=== PATIENT | female | born 1950 | race Caucasian/White ===

== ENCOUNTER 2020-05-18 12:01 | Emergency (ER) | payer MEDICARE ==
[~2020-05-18] VITALS: Ht 162.6 cm; Wt 59.1 kg
[2020-05-18 12:02] VITALS: TEMP 97.8
[2020-05-18] MEDS ORDERED: ZOLOFT 50MG50 MG PO (12:12)
[2020-05-18] MEDS ORDERED: ZANAFLEX2 MG PO (12:13)
[2020-05-18] MEDS ORDERED: ASPIRIN 81M81 MG/TA2 PO (12:13)
[2020-05-18] MEDS ORDERED: AMBIEN 10MG10 MG PO (12:14)
[2020-05-18] MEDS ORDERED: ULTRAM 50MG TAB50 MG PO (12:15)
[2020-05-18] MEDS ORDERED: ZYPREXA ZYDIS5 MG PO (12:15)
[2020-05-18] MEDS ORDERED: PLAVIX 75MG TAB75 MG PO (12:16)
[2020-05-18] MEDS ORDERED: SYNTHROID0.075 MG/T PO (12:16)
[2020-05-18] MEDS ORDERED: NORVASC2.5 MG PO (12:16)
[2020-05-18] MEDS ORDERED: LIPITOR 80MG80 MG PO (12:16)
[2020-05-18] MEDS ORDERED: ATIVAN 1MG T1 MG/TAB PO (12:17)
[2020-05-18] MEDS ORDERED: CYMBALTA 30MG30 MG PO (12:17)
[2020-05-18 12:38] LABS: BASO # 0.1 (0.0-0.2); BASO % 0.6 % (0.0-2.0); EOS # 0.4 (0.0-0.7); EOS % 2.9 % (0-4.0); GRAN # 8.7 (1.4-6.5); GRAN % 72.2 % (42.2-75.2); HEMATOCRIT 41.3 % (37.0-47.0); HEMOGLOBIN 13.8 g/dl (12.5-16.0); LYMPH # 2.3 (1.2-3.4); LYMPH % 18.8 % (20.0-51.0); MEAN CELL VOLUME 94 fl (80.0-100.0); MEAN CORPUSCULAR HEMOGLOBIN 32 pg (27.0-31.0); MEAN CORPUSCULAR HGB CONC 33 g/dl (33.0-37.0); MEAN PLATELET VOLUME 10.8 fl (7.4-10.4); MONO # 0.6 (0.1-0.6); MONO % 4.8 % (1.7-9.3); PLATELET COUNT 395 K/mm3 (130-400); RED BLOOD COUNT 4.38 M/mm3 (4.10-5.30); REDCELL DISTRIBUTION WIDTH-CV 12.7 % (11.5-14.5)
[2020-05-18 12:44] LABS: ALBUMIN 4.5 gm/dL (3.5-5.0); BILIRUBIN,TOTAL 1.4 mg/dL (0.0-1.0); CALCIUM 9.6 mg/dL (8.4-10.2); CREATININE, serum 1.05 (0.52-1.25); TOTAL PROTEIN 7.9 gm/dL (6.4-8.2)
[2020-05-18 13:50] LABS: COLLECTION METHOD CLEAN CATCH
[2020-05-18 13:57] LABS: MUCOUS Present /lpf; PH 6 (5-8); URINE APPEARANCE Hazy; URINE BACTERIA None Seen /hpf; URINE BILIRUBIN Negative (NEGATIVE); URINE BLOOD Negative (NEGATIVE); URINE COLOR Yellow; URINE GLUCOSE Negative (NEGATIVE); URINE KETONE Trace (NEGATIVE); URINE LEUKOCYTE ESTERASE Negative (NEGATIVE); URINE NITRATE Negative (NEGATIVE); URINE PROTEIN(semi-quant) Negative (NEGATIVE); URINE RBC 0-2 /hpf; URINE UROBILINOGEN Negative (NEGATIVE)
[2020-05-18 14:04] LABS: TRICYCLIC ANTIDEPRESS URINE NEGATIVE
[2020-05-18 16:16] VITALS: BP 145/73; PULSE 80
--- NOTE | 2020-05-18 16:32 | NUR ---
Stitcher Feeder received a consult for the patient for [facility]. The patient lives at home alone (with her dog) and her sister, Prabhakar lives a few mobile homes away. JONATHON met with the patient. She confirmed her sister does live a few mobile homes away from her. The patient has groceries delivered. The patient's PCP is Dr. Grant. JONATHON contacted [facility] with Dr. Grant's office. Jacqueline reports the patient recently has missed appointments. She states they have requested the patient visit the ED for a workup due to some confusion but the patient refused. The patient was released from [facility] on 04/19. She went there for SI. The patient is homebound due to anxiety and fear. The patient would like to return home with home health. JONATHON faxed referral to [facility]. They received the fax and will review it. JONATHON met with the patient's sister, Prabhakar to discuss the discharge plan. The plan is to return home with home health. Prabhakar will check on the patient once a day. Prabhakar discussed the patient possibly going to assisted living. JONATHON provided Medicare.gov's list of nursing facilities. She will contact them to get more information. JONATHON collaborated the above information with the patient's nurse.
[2020-05-19] MEDS ORDERED: SYNTHROID0.1 MG/TAB PO (00:02)
[2020-05-19] MEDS ORDERED: ZYPREXA 5MG5 MG PO (00:03)
[2020-05-19] MEDS ORDERED: COZAAR 25MG25 MG/TAB PO (00:05)
== END 2020-05-18 16:16 | disposition home or self-care (01) ==
LOC: COL.ER 12:01 → EDBD 12:02 → COL.ER 13:27
PROVIDERS: Family Medicine
DX: R41.0 Disorientation, unspecified (principal); R51.9 Headache, unspecified; I10 Essential (primary) hypertension; Z79.02 Long term (current) use of antithrombotics/antiplatelets; Z79.82 Long term (current) use of aspirin
CPT/HCPCS: J0780; J1100; J1200; J1885; J7120

== ENCOUNTER 2020-05-18 19:03 | Inpatient (IN) | payer MEDICARE, OTHER ==
[~2020-05-18] VITALS: Ht 162.6 cm; Wt 59.4 kg
[~2020-05-18 19:03] MED LIST: AMBIEN 10MG10 MG PO; ASPIRIN 81M81 MG/TA2 PO; ATIVAN 1MG T1 MG/TAB PO; CYMBALTA 30MG30 MG PO; LIPITOR 80MG80 MG PO; NORVASC2.5 MG PO; PLAVIX 75MG TAB75 MG PO; SYNTHROID0.075 MG/T PO; ULTRAM 50MG TAB50 MG PO; ZANAFLEX2 MG PO; ZOLOFT 50MG50 MG PO; ZYPREXA ZYDIS5 MG PO
[2020-05-18 22:49] LABS: ACETAMINOPHEN < 10 ug/mL (10-30); SALICYLATE < 1.0 mg/dL
[2020-05-19] MEDS ORDERED: SYNTHROID0.1 MG/TAB PO (00:02)
[2020-05-19] MEDS ORDERED: ZYPREXA 5MG5 MG PO (00:03)
[2020-05-19] MEDS ORDERED: COZAAR 25MG25 MG/TAB PO (00:05)
--- NOTE | 2020-05-19 00:23 | NUR ---
Pt arrived to unit from ED via wheelchair.
[2020-05-19 00:35] VITALS: BP 136/78; PULSE 90; TEMP 97.5
[2020-05-19 02:09] LABS: MAGNESIUM 2.3 mg/dL (1.6-2.3); PHOSPHOROUS 3.4 mg/dL (2.5-4.5)
[2020-05-19 02:10] LABS: ALCOHOL(ethanol),MEDICAL < 10 mg/dL
[2020-05-19 03:31] VITALS: BP 128/77; PULSE 94; TEMP 97.9
--- NOTE | 2020-05-19 05:20 | NUR ---
Assessment completed, meds given per SEP. pt is alert and oriented to person and place, confused about why she is here and has memory problems intermittently. steady gait, pt reporting headache in the left frontal area stating unable to rate pain on a scale of 1 to 10. fluids started at 125 mLs per hour, no other needs at this time.
[2020-05-19 06:36] LABS: BASO % 0.2 % (0.0-2.0); EOS % 0.1 % (0-4.0); GRAN # 12.3 (1.4-6.5); GRAN % 80.2 % (42.2-75.2); HEMOGLOBIN 12.2 g/dl (12.5-16.0); LYMPH # 2.5 (1.2-3.4); LYMPH % 16.4 % (20.0-51.0); MEAN CELL VOLUME 94 fl (80.0-100.0); MEAN CORPUSCULAR HEMOGLOBIN 32 pg (27.0-31.0); MEAN CORPUSCULAR HGB CONC 34 g/dl (33.0-37.0); MEAN PLATELET VOLUME 11.6 fl (7.4-10.4); MONO # 0.4 (0.1-0.6); MONO % 2.4 % (1.7-9.3); PLATELET COUNT 361 K/mm3 (130-400); RED BLOOD COUNT 3.81 M/mm3 (4.10-5.30)
[2020-05-19 06:42] LABS: HEMATOCRIT 35.7 % (37.0-47.0)
[2020-05-19 08:27] VITALS: BP 153/77; PULSE 83; TEMP 97.4
--- NOTE | 2020-05-19 09:30 | NUR ---
Patient is going down for Lumbar puncture at this time
[2020-05-19 10:43] LABS: GLUCOSE,CSF 93 mg/dL (40-70); TOTAL PROTEIN,CSF 56 mg/dL (15-45)
[2020-05-19 10:53] LABS: CSF APPEARANCE CLEAR; CSF COLOR PINK; CSF MONONUCLEAR 72 % (70-100); CSF POLYMORPHONUCLEAR 28 % (0-6); CSF RBC 864 /mm3 (0-0)
[2020-05-19 11:38] VITALS: BP 147/65; PULSE 99; TEMP 97.6
[2020-05-19 15:55] VITALS: BP 137/77; PULSE 101; TEMP 98
--- NOTE | 2020-05-19 16:29 | NUR ---
JONATHON met with the patient to discuss discharge plan. The patient lives alone in [place]. She states that her sister, Prabhakar (ph#[phone]) and mother, live a couple trailers from her. She reports independence with ADLs and has a rolaider in her shed. The patient's PCP is Dr. Kamilah Ramos and she receives her medications at [facility]. She reports no difficulties obtaining her meds. The patient states that she thinks she has a DPOA-HC and that it designates her sister, Prabhakar. She states that she does not want Prabhakar as her DPOA-HC and making her decisions and would like to name her other sister, Ania as her DPOA-HC. SW provided her with a DPOA-HC form. The patient designated her sister, Ania (ph#[phone]), and her brother, Soto (ph#[phone]), as the alternate. Ania lives in [place] and Soto lives in [place]. The patient presented to the emergency department twice yesterday for altered mental status. The patient was set up with [facility]. Oralia, at [facility], reports that the patient has Medicare [employer] and that they received auth from her insurance. They are able to accept the patient for services. Oralia was notified of the patient being admitted. SW to fax updates to [facility]. The patient states that she would like to return home, if she can. She states that if she would need more help, she would like to see if she can stay with her brother for awhile. She states that she plans on talking to Soto about this. JONATHON then contacted and updated Ania and Soto. Ania and Soto are both are both concerned about the patient's confusion. Soto states that he needs to think about and talk to his about her staying with them. Ania and Soto ask that the clinical team keep them updated. SW to continue to follow.
--- NOTE | 2020-05-19 17:36 | NUR ---
Patient has had complaints of a migraine in the left side of her head. Michelle PEREZ notified. Patient has been A&Ox4 for this nurse, but was reported from other nursing staff to be confused at times. Patient has called for assistance to the bathroom and is steady on feet. Nurse instructed patient to put a cool wash cloth over eyes to help with the migraine. Will check to see if this help with the migraine. IV CDI, fluids infusing. No further needs expressed from the patient. Call light within reach
[2020-05-19 20:00] VITALS: BP 128/59; PULSE 92; TEMP 98.6
--- NOTE | 2020-05-19 21:10 | NUR ---
pt resting in bed, alert and oriented to person and place. conversation is confused at times, assessment completed and medications given per MAR. heart sounds are regular and normal, breath sounds clear. pt denies shortness of breath and chest pain. reporting migraine headache in the left frontal lobe, denies pain anywhere else. 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 gait is steady but pt seems anxious when walking to the bathroom. no other needs at this time, will continue to monitor.
[2020-05-20] VITALS (9 sets, daily range): BP systolic 100–175; BP diastolic 49–87; PULSE 79–104; TEMP 97.6–98.7
--- NOTE | 2020-05-20 00:58 | NUR ---
Pt reporting migraine and requesting medication, states the medication helped earlier but she has been unable to sleep. gave tylenol and benadryl prn per orders. will continue to monitor.
[2020-05-20 01:55] LABS: COLLECTION METHOD CLEAN CATCH
[2020-05-20 02:00] LABS: PH 6 (5-8); SQUAMOUS EPITHELIAL 0-2 /hpf; URINE APPEARANCE Clear; URINE BACTERIA Rare /hpf; URINE BILIRUBIN Negative (NEGATIVE); URINE BLOOD Negative (NEGATIVE); URINE COLOR Straw; URINE GLUCOSE Negative (NEGATIVE); URINE KETONE Negative (NEGATIVE); URINE LEUKOCYTE ESTERASE Negative (NEGATIVE); URINE NITRATE Negative (NEGATIVE); URINE PROTEIN(semi-quant) Negative (NEGATIVE); URINE RBC 0-2 /hpf; URINE UROBILINOGEN Negative (NEGATIVE); URINE WBC None Seen /hpf
--- NOTE | 2020-05-20 05:31 | NUR ---
pt resting in bed most of the night, states that she didn't sleep at all. continues to be alert and oriented to person and place, confused conversation. pt is impulsive when getting up to go to the bathroom and forgetful at times. migraine continues in the left frontal lobe, no other needs at this time will continue to monitor.
[2020-05-20 06:28] LABS: MEAN CELL VOLUME 96 fl (80.0-100.0); MEAN CORPUSCULAR HEMOGLOBIN 32 pg (27.0-31.0); MEAN CORPUSCULAR HGB CONC 33 g/dl (33.0-37.0); MEAN PLATELET VOLUME 11.6 fl (7.4-10.4); PLATELET COUNT 350 K/mm3 (130-400); RED BLOOD COUNT 3.76 M/mm3 (4.10-5.30); REDCELL DISTRIBUTION WIDTH-CV 13.4 % (11.5-14.5)
[2020-05-20 06:36] LABS: HEMATOCRIT 36.2 % (37.0-47.0)
[2020-05-20 06:38] LABS: CALCIUM 8.7 mg/dL (8.4-10.2); CREATININE, serum 1.16 (0.52-1.25)
[2020-05-20 07:46] LABS: BAND 3 % (0-10); LYMPHOCYTE 39 % (20.0-51.0); NEUTROPHILS 54 % (42.0-75.2); PLATELET ESTIMATE NORMAL (NORMAL)
--- NOTE | 2020-05-20 10:43 | NUR ---
JONATHON attended clinical rounds. The patient may be able to d/c tomorrow. The patient informed the team that she still makes meals for herself, but has concerns doing so, due to her tremors and does not really enjoy cooking for herself. JONATHON followed up with the patient and discussed [facility] [employer] [facility]. The patient was interested in this. JONATHON contacted Terri at [employer]. Terri reports that the patient would need to come to her office to fill out some paperwork. JONATHON informed the patient of this and provided her with Terri's phone number and address. JONATHON reviewed the discharge plan with the patient. The patient would like to return home and is in agreement to have home health services though [facility]. JONATHON notified Oralia at [facility] of possible d/c tomorrow. JONATHON contacted and updated the patient's sister, Ania. JONATHON to continue to follow.
--- NOTE | 2020-05-20 11:34 | NUR ---
Patient alert and oriented, denies any pain. ambulate with standbu assist to the bathroom. ML543iz/hr reduced to 75mL/hr. patient had eeg this am. patient resting in bed.
[2020-05-20 12:53] LABS: HSV 2 DNA PCR QUAL Not Detected (())
--- NOTE | 2020-05-20 13:34 | NUR ---
patient have moderate tremors on her arms.
--- NOTE | 2020-05-20 20:00 | NUR ---
Assessment complete. Patient is alert and oriented and appears slightly hyper in her conversation. No pain or edema is present. Hand bevel face stoner and polisher are equal and patient has normal strength in all extremities. IV fluids infusing. No new concerns. Call light in reach, will continue to monitor.
--- NOTE | 2020-05-21 01:58 | NUR ---
Patient wakes up complaining of migraine with pain 03/02. PRN Ultram 50 mg administered. Patient also states "maybe I'm confused" but answers orientation questions correctly. Will continue to monitor.
[2020-05-21 03:32] VITALS: BP 113/70; PULSE 85; TEMP 97.9
[2020-05-21 06:55] LABS: BASO # 0.1 (0.0-0.2); BASO % 0.6 % (0.0-2.0); EOS # 0.7 (0.0-0.7); EOS % 5.8 % (0-4.0); GRAN % 54.6 % (42.2-75.2); HEMATOCRIT 37.4 % (37.0-47.0); HEMOGLOBIN 12.1 g/dl (12.5-16.0); LYMPH % 31.3 % (20.0-51.0); MEAN CELL VOLUME 97 fl (80.0-100.0); MEAN CORPUSCULAR HEMOGLOBIN 31 pg (27.0-31.0); MEAN CORPUSCULAR HGB CONC 32 g/dl (33.0-37.0); MEAN PLATELET VOLUME 11.5 fl (7.4-10.4); MONO # 0.9 (0.1-0.6); MONO % 7.2 % (1.7-9.3); PLATELET COUNT 342 K/mm3 (130-400); RED BLOOD COUNT 3.87 M/mm3 (4.10-5.30); REDCELL DISTRIBUTION WIDTH-CV 13.3 % (11.5-14.5)
[2020-05-21 07:04] LABS: CALCIUM 9.2 mg/dL (8.4-10.2); CREATININE, serum 1.1 (0.52-1.25); POTASSIUM 4.2 mmol/L (3.4-5.0)
[2020-05-21 07:22] VITALS: BP 129/77; PULSE 87; TEMP 98.8
--- NOTE | 2020-05-21 07:47 | NUR ---
PATIENT TAKEN TO MRI VIA WHEELCHAIR. WILL WAIT FOR PATIENT ARRIVAL BACK TO ROOM 308.
--- NOTE | 2020-05-21 08:54 | NUR ---
PATIENT ARRIVED BACK TO ROOM 308 VIA WHEELCHAIR FROM MRI. PATIENT SETTELED INTO ROOM.
--- NOTE | 2020-05-21 09:48 | NUR ---
JONATHON attended clinical rounds. The patient had an MRI this morning. The patient is to tentatively d/c today after her MRI impressions are back. SW followed up with the patient to review d/c plan. The patient states that her niece works at [facility] and she would prefer home health through [facility] now. JONATHON presented and read the IM form outloud to the patient. The patient verbalized understanding and gave JONATHON approval to sign the form on her behalf. JONATHON provided her with a copy. JONATHON contacted and faxed a referral to Sunni at [facility]. SW awaiting their screen.
[2020-05-21 11:01] VITALS: BP 114/70; PULSE 77; TEMP 97.6
--- NOTE | 2020-05-21 11:48 | NUR ---
Sunni, at [facility], reports that they are able to accept the patient for services. JONATHON informed the patient. The patient states that her niece will transport her back home. JONATHON contacted and updated Oralia at [facility]. The patient is to discharge back home today, 05/21, with home health services for intermediate/PT/OT through [facility]. JONATHON notified and faxed the patient's d/c orders to Sunni at [facility]. JONATHON attempted to contact and update the patient's sister, Ania, and brother, Soto. JONATHON left them voicemails. No additional needs at this time. The patient's APS report screened through and she was assigned to the APS worker, Tana. Tana came and met with the patient yesterday, 05/20. JONATHON notified Tana of the patient discharging.
--- NOTE | 2020-05-21 15:02 | NUR ---
The patient's sister, Ania, returned JONATHON's phone call. Ania states that she still have some concerns about the patient's confusion. She states that the patient will sound fine and make sense, but then still be confused about some things. She states that her brother, Soto, thinks that it is all an act. JONATHON updated her about [facility]. Ania states that she still plans on contacting the patient everyday to check in on her. JONATHON attempted to update NIMO Phillipsmonitoring manager, at Dr. Ramos's office. JONATHON left her a voicemail.
--- NOTE | 2020-05-21 15:50 | NUR ---
DISCHARGE INSTRUCTIONS REVIEWED WITH PATIENT. QUESTIONS SOUGHT AND ANSWERED. PATIENT PERSONAL BELONGINGS GATHERED. SEE AM SHIFT ASSESSMENT. PATIENT GIVEN PRN TRAMADOL FOR MIGRAINE PRIOR TO DISCHARGE. PATIENT WAITING ON RIDE.
[2020-05-26 15:03] LABS: CSF OLIG BD INTERPRETATION 0 bands (<2); CSF OLIGOCLONAL BANDING 0 bands (()); SE OLIGOCLONAL BANDING 0 bands (())
== END 2020-05-21 16:05 | disposition home health service (06) | DRG 103 ==
LOC: COL.ER 19:03 → MEDICAL 22:21 → COL.ER 22:21 → MEDICAL 05-21 16:05
PROVIDERS: Emergency Medicine; Internal Medicine Infectious Disease; Nurse Practitioner Family; Physician Assistant; Psychiatry & Neurology Neurology; ADMIT Hospitalist
DX: G43.709 Chronic migraine without aura, not intractable, without status migrainosus (principal); G93.40 Encephalopathy, unspecified; I10 Essential (primary) hypertension; I25.10 Atherosclerotic heart disease of native coronary artery without angina pectoris; F41.9 Anxiety disorder, unspecified; F32.9 Major depressive disorder, single episode, unspecified; F43.10 Post-traumatic stress disorder, unspecified; E03.9 Hypothyroidism, unspecified; E11.65 Type 2 diabetes mellitus with hyperglycemia; E78.5 Hyperlipidemia, unspecified; I25.2 Old myocardial infarction; Z88.2 Allergy status to sulfonamides
CPT/HCPCS: 99223-AI; 99232-AI; 99233-AI; 99239; A9585; J0780; J1200; J1650; J1815; J1885; J7030

== ENCOUNTER 2020-05-29 08:10 | Emergency (ER) | payer MEDICARE ==
[~2020-05-29] VITALS: Ht 162.6 cm; Wt 59.1 kg
[~2020-05-29 08:10] MED LIST changes: +COZAAR 25MG25 MG/TAB PO; +SYNTHROID0.1 MG/TAB PO; +ZYPREXA 5MG5 MG PO
[2020-05-29 08:11] VITALS: TEMP 97.9
[2020-05-29 09:02] LABS: BASO # 0.1 (0.0-0.2); BASO % 0.6 % (0.0-2.0); EOS # 0.1 (0.0-0.7); EOS % 1.3 % (0-4.0); GRAN # 6.9 (1.4-6.5); GRAN % 63.3 % (42.2-75.2); HEMATOCRIT 38.2 % (37.0-47.0); HEMOGLOBIN 12.8 g/dl (12.5-16.0); LYMPH # 3.1 (1.2-3.4); LYMPH % 28.8 % (20.0-51.0); MEAN CELL VOLUME 95 fl (80.0-100.0); MEAN CORPUSCULAR HEMOGLOBIN 32 pg (27.0-31.0); MEAN CORPUSCULAR HGB CONC 34 g/dl (33.0-37.0); MEAN PLATELET VOLUME 11.2 fl (7.4-10.4); MONO # 0.6 (0.1-0.6); MONO % 5.6 % (1.7-9.3); PLATELET COUNT 368 K/mm3 (130-400); RED BLOOD COUNT 4.04 M/mm3 (4.10-5.30); REDCELL DISTRIBUTION WIDTH-CV 13.2 % (11.5-14.5)
[2020-05-29 09:46] LABS: ALANINE AMINOTRANSFERASE 19 U/L (4-34); ALBUMIN 4.4 gm/dL (3.5-5.0); ALKALINE PHOSPHATASE 104 U/L (50-136); ANION GAP 8 mmol/L (7-16); AST,SGOT 23 U/L (15-37); BILIRUBIN,TOTAL 0.9 mg/dL (0.0-1.0); BLOOD UREA NITROGEN 16 mg/dL (7-17); CALCIUM 9.4 mg/dL (8.4-10.2); CARBON DIOXIDE 23 mmol/L (22-30); CHLORIDE 107 mmol/L (98-107); CREATININE, serum 0.97 (0.52-1.25); GLUCOSE 152 mg/dL (74-106); POTASSIUM 3.9 mmol/L (3.4-5.0); SODIUM 138 mmol/L (137-145); TOTAL PROTEIN 7.3 gm/dL (6.4-8.2)
[2020-05-29 09:49] LABS: ACETAMINOPHEN < 10 ug/mL (10-30); ALCOHOL(ethanol),MEDICAL < 10 mg/dL; SALICYLATE < 1.0 mg/dL
[2020-05-29 10:04] LABS: COLLECTION METHOD CLEAN CATCH
[2020-05-29 10:22] LABS: MUCOUS Present /lpf; PH 5 (5-8); URINE APPEARANCE Hazy; URINE BACTERIA Rare /hpf; URINE BILIRUBIN Negative (NEGATIVE); URINE BLOOD Negative (NEGATIVE); URINE COLOR Yellow; URINE GLUCOSE Negative (NEGATIVE); URINE KETONE Negative (NEGATIVE); URINE LEUKOCYTE ESTERASE Negative (NEGATIVE); URINE NITRATE Negative (NEGATIVE); URINE PROTEIN(semi-quant) Negative (NEGATIVE); URINE RBC 0-2 /hpf; URINE UROBILINOGEN Negative (NEGATIVE)
[2020-05-29 11:38] LABS: TRICYCLIC ANTIDEPRESS URINE NEGATIVE
[2020-05-29 15:50] VITALS: BP 138/62; PULSE 83
== END 2020-05-29 12:40 | disposition home or self-care (01) ==
LOC: COL.ER 08:10
PROVIDERS: Family Medicine
DX: R41.0 Disorientation, unspecified (principal); F32.9 Major depressive disorder, single episode, unspecified; Z88.2 Allergy status to sulfonamides; Z79.02 Long term (current) use of antithrombotics/antiplatelets

== ENCOUNTER 2020-10-08 15:11 | Emergency (ER) | payer MEDICARE ==
[~2020-10-08] VITALS: Ht 162.6 cm; Wt 63.6 kg
[2020-10-08 15:33] VITALS: TEMP 97.5
[2020-10-08 15:56] LABS: COLLECTION METHOD CLEAN CATCH
[2020-10-08 16:02] LABS: BASO % 0.3 % (0.0-2.0); EOS # 0.2 (0.0-0.7); GRAN # 5.2 (1.4-6.5); GRAN % 51.7 % (42.2-75.2); HEMATOCRIT 37.3 % (37.0-47.0); HEMOGLOBIN 12.5 g/dl (12.5-16.0); LYMPH # 3.9 (1.2-3.4); LYMPH % 38.6 % (20.0-51.0); MEAN CELL VOLUME 95 fl (80.0-100.0); MEAN CORPUSCULAR HEMOGLOBIN 32 pg (27.0-31.0); MEAN CORPUSCULAR HGB CONC 34 g/dl (33.0-37.0); MEAN PLATELET VOLUME 11.2 fl (7.4-10.4); MONO # 0.7 (0.1-0.6); MONO % 6.9 % (1.7-9.3); PLATELET COUNT 332 K/mm3 (130-400); RED BLOOD COUNT 3.94 M/mm3 (4.10-5.30); REDCELL DISTRIBUTION WIDTH-CV 13.4 % (11.5-14.5)
[2020-10-08 16:05] LABS: MUCOUS Present /lpf; PH 5 (5-8); URINE APPEARANCE Cloudy; URINE BACTERIA Rare /hpf; URINE BILIRUBIN Negative (NEGATIVE); URINE BLOOD Negative (NEGATIVE); URINE COLOR Yellow; URINE GLUCOSE Negative (NEGATIVE); URINE KETONE Negative (NEGATIVE); URINE LEUKOCYTE ESTERASE Negative (NEGATIVE); URINE NITRATE Negative (NEGATIVE); URINE PROTEIN(semi-quant) 1+ (NEGATIVE); URINE RBC 0-2 /hpf; URINE UROBILINOGEN Negative (NEGATIVE)
[2020-10-08 16:14] LABS: BILIRUBIN,TOTAL 0.9 mg/dL (0.0-1.0); C-REACTIVE PROTEIN 0.7 mg/dL (0.0-0.9); CALCIUM 9.4 mg/dL (8.4-10.2); POTASSIUM 3.8 mmol/L (3.4-5.0)
[2020-10-08 17:37] VITALS: BP 125/68; PULSE 69
== END 2020-10-08 18:07 | disposition home or self-care (01) ==
LOC: COL.ER 15:11
PROVIDERS: Nurse Practitioner
DX: R19.7 Diarrhea, unspecified (principal); R53.83 Other fatigue; R42 Dizziness and giddiness; R06.02 Shortness of breath; F17.210 Nicotine dependence, cigarettes, uncomplicated; Z88.2 Allergy status to sulfonamides; Z79.02 Long term (current) use of antithrombotics/antiplatelets
CPT/HCPCS: J7030

== ENCOUNTER 2020-10-21 09:39 | Day surgery (SDC) | payer MEDICARE ==
[~2020-10-21] VITALS: Ht 162.6 cm; Wt 64.5 kg
[2020-10-21] MEDS ORDERED: LOPRESSOR 225 MG/TAB PO (10:37)
[2020-10-21] MEDS ORDERED: TYLENOL PM EXTR1 TA1 PO (10:38)
[2020-10-21] MEDS ORDERED: SYNTHROID0.075 MG/T PO (10:39)
[2020-10-21] MEDS ORDERED: MELATONIN5 M1 SL (10:39)
[2020-10-21] MEDS ORDERED: ASPIRIN 81M81 MG/TA2 PO (10:40)
[2020-10-21 12:23] VITALS: BP 129/85; PULSE 61; TEMP 97.4
[2020-10-21 13:15] VITALS: BP 111/76; PULSE 62; TEMP 97.5
--- NOTE | 2020-10-21 13:15 | NUR ---
The patient arrived back to [facility] from the Endoscopy suite at this time. The patient ambulated from the cart to the recliner in her room with the stand by assistance of two nurses and appeared to tolerate the activity well. The patient appears alert and oriented and denies any pain or nausea at this time. Post procedure vital signs were started at this time. The patient agrees to try some iced tea and chocolate pudding at this time. Call light is within reach. Will continue to monitor the patient.
[2020-10-21 13:30] VITALS: BP 136/70; PULSE 56
--- NOTE | 2020-10-21 13:33 | NUR ---
Dr. Saucedo has spoke with the patient regarding the findings of the procedure. The patient appears to be tolerating the food and drink well. The patient denies any further needs at this time. Will conitnue to monitor the patient.
[2020-10-21 13:45] VITALS: BP 136/70; PULSE 59
--- NOTE | 2020-10-21 13:45 | NUR ---
Discharge instructions were reviewed with the patient at this time. She verbalized understanding and has no questions for the nurse at this time. The patient's IV to her right forearm was removed and a pressure dressing was applied to the site. The nurse instructed the patient to call her brother who is her ride and get dressed.
--- NOTE | 2020-10-21 14:05 | NUR ---
The patient was escorted out via wheelchair to a private vehicle by NIMO Sloan. The patient's belongings and discharge paperwork were sent with her. The patient's brother is present to drive her home.
== END 2020-10-21 14:05 | disposition home or self-care (01) ==
LOC: SDCO 09:39
DX: K63.5 Polyp of colon (principal); K52.832 Lymphocytic colitis; R19.7 Diarrhea, unspecified; K64.0 First degree hemorrhoids; I25.10 Atherosclerotic heart disease of native coronary artery without angina pectoris; I10 Essential (primary) hypertension; E78.5 Hyperlipidemia, unspecified; G43.909 Migraine, unspecified, not intractable, without status migrainosus; F32.9 Major depressive disorder, single episode, unspecified; F41.9 Anxiety disorder, unspecified; F43.10 Post-traumatic stress disorder, unspecified; Z79.01 Long term (current) use of anticoagulants; Z20.822 Contact with and (suspected) exposure to COVID-19; Z90.89 Acquired absence of other organs; Z98.51 Tubal ligation status; Z88.2 Allergy status to sulfonamides; Z88.8 Allergy status to other drugs, medicaments and biological substances; Z79.899 Other long term (current) drug therapy; Z79.890 Hormone replacement therapy
CPT/HCPCS: J2704; J3010; J7030

== ENCOUNTER 2022-10-14 13:49 | Emergency (ER) | payer MEDICARE ==
[~2022-10-14] VITALS: Ht 162.6 cm; Wt 63.6 kg
[~2022-10-14 13:49] MED LIST changes: +ATARAX50 MG PO; +LEVAQUIN 5500 MG/TA1 PO; +LOPRESSOR 225 MG/TAB PO; +MELATONIN5 M1 SL; +PROZAC 20MG20 MG PO; +PROZAC40 MG PO; +PROZAC60 MG PO; +SODIUM BICARBO650 MG PO; +TYLENOL PM EXTR1 TA1 PO
[2022-10-14 14:19] LABS: BASO # 0.1 K/mm3 (0.0-0.2); BASO % 0.6 % (0.0-2.0); EOS # 0.1 K/mm3 (0.0-0.7); EOS % 0.8 % (0.0-4.0); GRAN # 7.9 K/mm3 (1.4-6.5); GRAN % 69.2 % (42.2-75.2); HEMATOCRIT 46.7 % (37.0-47.0); HEMOGLOBIN 15.4 g/dl (12.5-16.0); LYMPH # 2.7 K/mm3 (1.2-3.4); LYMPH % 23.6 % (20.0-51.0); MEAN CELL VOLUME 82 fl (80.0-100.0); MEAN CORPUSCULAR HEMOGLOBIN 27 pg (27-31); MEAN CORPUSCULAR HGB CONC 33 g/dl (33.0-37.0); MEAN PLATELET VOLUME 10.4 fl (7.4-10.4); MONO # 0.6 K/mm3 (0.1-0.6); MONO % 5.5 % (1.7-9.3); PLATELET COUNT 464 K/mm3 (130-400); RED BLOOD COUNT 5.67 M/mm3 (4.10-5.30); REDCELL DISTRIBUTION WIDTH-CV 16.5 % (11.5-14.5)
[2022-10-14 15:38] LABS: COLLECTION METHOD CLEAN CATCH
[2022-10-14 15:39] LABS: ALANINE AMINOTRANSFERASE 26 U/L (0-55); ALKALINE PHOSPHATASE 109 U/L (40-150); ANION GAP 14 mmol/L (7-16); AST,SGOT 16 U/L (5-34); BILIRUBIN,TOTAL 1.7 mg/dL (0.2-1.2); BLOOD UREA NITROGEN 38 mg/dL (10-20); CALCIUM 9.5 mg/dL (8.4-10.2); CARBON DIOXIDE 18 mmol/L (23-31); CHLORIDE 106 mmol/L (98-107); CREATININE, serum 1.28 mg/dL (0.57-1.11); GLUCOSE 136 mg/dL (70-99); POTASSIUM 4.2 mmol/L (3.5-4.5); SODIUM 138 mmol/L (136-145); TOTAL PROTEIN 7.2 gm/dL (6.2-8.1)
[2022-10-14 15:46] LABS: MUCOUS Present (NOT PRESENT); URINE BACTERIA Rare /hpf (NONE SEEN)
[2022-10-14 15:48] LABS: URINE APPEARANCE Clear (CLEAR/HAZY); URINE BLOOD TRACE-INTACT (NEGATIVE); URINE COLOR Amber (YELLOW); URINE GLUCOSE Negative (NEGATIVE); URINE KETONE 2+ (NEGATIVE); URINE NITRATE Negative (NEGATIVE); URINE PROTEIN(semi-quant) 1+ (NEGATIVE); URINE UROBILINOGEN 0.2 E.U/dL (0.2-1.0)
[2022-10-14 15:59] LABS: TROPONIN-I < 0.010 ng/mL (0.00-0.033); TSH w REFLEX 3.953 uIU/mL (0.350-4.940)
[2022-10-14 16:04] LABS: TRICYCLIC ANTIDEPRESS URINE NEGATIVE
--- NOTE | 2022-10-14 16:20 | NUR ---
JONATHON notified by CHRIS that the patient verbalizes she has been living in her storage unit and is not allowed to go back to [facility] for 30 days. JONATHON contacted [facility] and spoke with the JONATHON Flores who states that the patient frequently will come in and stay but randomly leave once they start talking about getting the patient resources. Sandra states the the patient makes $2400 a month in [employer] but has heard rumors from other residents that when the patient gets her check she will find men online and meet them at hotels, give them money and return to the care home when she has no food, however Sandra has no hard evidence of this. At this time, the patient is on their "do not return list" due to her lack of willingness to work with them. Sandra also states that the automatic steel tie adjuster of the [employer] has arrived at [facility] on serveral occasions to collect unpaid room expenses. CHRIS notified.
[2022-10-14 17:23] VITALS: BP 145/75; PULSE 79; TEMP 98.8
== END 2022-10-14 17:30 | disposition home or self-care (01) ==
LOC: COL.ER 13:49
PROVIDERS: Family Medicine; Physician Assistant
DX: N39.0 Urinary tract infection, site not specified (principal); E86.0 Dehydration; R79.89 Other specified abnormal findings of blood chemistry; Z88.2 Allergy status to sulfonamides
CPT/HCPCS: J0696; J7030

== ENCOUNTER 2022-10-14 19:11 | Emergency (ER) | payer MEDICARE ==
[~2022-10-14] VITALS: Ht 162.6 cm; Wt 63.6 kg
[2022-10-14 19:28] VITALS: BP 138/97; TEMP 98.1
--- NOTE | 2022-10-14 20:48 | NUR ---
Staff Anesthetist: Staff Anesthetist was in hospital reconstructive dentist. Before leaveing the hospital for the evening, Staff Anesthetist went to Emergency Department to see how things were going there. An RN at the desk suggested that the Patient in ER15 could use a visit. Patient is a 72-year-old woman who recently became homeless after an online attempt at finding a relationship. Patient had been sleeping in a storage shed. Prior to the online relationship, the Patient's Mother had been living with her. Patient stated that her Mother went to live with Patient's Brother. While living with him the Mother had a fall resulting in a fractured hip. The Mother now lives in a skilled living facility. This change in home and family dynamics is causing the Patient much grief and anxiety. Staff Anesthetist provided supportive listening and prayer. Staff Anesthetist spoke to RN to see if a Director Epidemiology had been able to speak with Patient. RN confirmed that Director Epidemiology visited Patient earlier. RN also stated that [facility] had been contacted. They are waiting to hear from [facility] before determining discharge.
[2022-10-14 21:20] VITALS: PULSE 92
== END 2022-10-14 21:20 | disposition home or self-care (01) ==
LOC: COL.ER 19:11
DX: F32.A Depression, unspecified (principal)

== ENCOUNTER 2022-10-16 12:52 | Emergency (ER) | payer MEDICARE ==
[~2022-10-16] VITALS: Ht 162.6 cm; Wt 63.6 kg
[2022-10-16 13:06] VITALS: TEMP 97.6
[2022-10-16 13:48] LABS: BASO # 0.1 K/mm3 (0.0-0.2); BASO % 0.7 % (0.0-2.0); EOS # 0.2 K/mm3 (0.0-0.7); EOS % 2.4 % (0.0-4.0); GRAN # 5.4 K/mm3 (1.4-6.5); GRAN % 53.9 % (42.2-75.2); HEMATOCRIT 38.1 % (37.0-47.0); LYMPH # 3.7 K/mm3 (1.2-3.4); LYMPH % 37.2 % (20.0-51.0); MEAN CELL VOLUME 85 fl (80.0-100.0); MEAN CORPUSCULAR HEMOGLOBIN 29 pg (27-31); MEAN CORPUSCULAR HGB CONC 34 g/dl (33.0-37.0); MEAN PLATELET VOLUME 10.9 fl (7.4-10.4); MONO # 0.6 K/mm3 (0.1-0.6); MONO % 5.6 % (1.7-9.3); PLATELET COUNT 400 K/mm3 (130-400); REDCELL DISTRIBUTION WIDTH-CV 16.1 % (11.5-14.5)
[2022-10-16 13:59] LABS: HEMOGLOBIN 12.9 g/dl (12.5-16.0)
[2022-10-16 14:02] LABS: ALANINE AMINOTRANSFERASE 18 U/L (0-55); ALBUMIN 3.8 gm/dL (3.4-4.8); ALKALINE PHOSPHATASE 112 U/L (40-150); ANION GAP 12 mmol/L (7-16); AST,SGOT 16 U/L (5-34); BILIRUBIN,TOTAL 1.3 mg/dL (0.2-1.2); BLOOD UREA NITROGEN 20 mg/dL (10-20); CALCIUM 9.3 mg/dL (8.4-10.2); CARBON DIOXIDE 21 mmol/L (23-31); CHLORIDE 104 mmol/L (98-107); CREATININE, serum 1.16 mg/dL (0.57-1.11); GLUCOSE 110 mg/dL (70-99); MAGNESIUM 1.9 mg/dL (1.6-2.6); POTASSIUM 3.9 mmol/L (3.5-4.5); SODIUM 137 mmol/L (136-145); TOTAL PROTEIN 6.9 gm/dL (6.2-8.1)
[2022-10-16 14:10] LABS: TROPONIN-I < 0.010 ng/mL (0.00-0.033)
[2022-10-16] MEDS ORDERED: GLUCOPHAGE500 MG/TAB PO (17:01)
[2022-10-16 18:25] VITALS: BP 110/71; PULSE 53
== END 2022-10-16 18:40 | disposition home or self-care (01) ==
LOC: COL.ER 12:52
PROVIDERS: Emergency Medicine
DX: I95.9 Hypotension, unspecified (principal); E86.0 Dehydration; E11.9 Type 2 diabetes mellitus without complications; E87.20 Acidosis, unspecified; I10 Essential (primary) hypertension; Z79.899 Other long term (current) drug therapy; Z79.82 Long term (current) use of aspirin; Z79.02 Long term (current) use of antithrombotics/antiplatelets
CPT/HCPCS: J7120

== ENCOUNTER 2022-10-19 10:53 | Emergency (ER) | payer MEDICARE ==
[~2022-10-19] VITALS: Ht 162.6 cm; Wt 63.6 kg
[~2022-10-19 10:53] MED LIST changes: +GLUCOPHAGE500 MG/TAB PO
[2022-10-19 10:54] VITALS: TEMP 98
[2022-10-19 11:43] LABS: BASO % 0.5 % (0.0-2.0); EOS # 0.3 K/mm3 (0.0-0.7); EOS % 3.9 % (0.0-4.0); GRAN # 4.6 K/mm3 (1.4-6.5); GRAN % 51.9 % (42.2-75.2); LYMPH # 3.2 K/mm3 (1.2-3.4); LYMPH % 36.6 % (20.0-51.0); MEAN CELL VOLUME 85 fl (80.0-100.0); MEAN CORPUSCULAR HGB CONC 31 g/dl (33.0-37.0); MEAN PLATELET VOLUME 10.8 fl (7.4-10.4); MONO # 0.6 K/mm3 (0.1-0.6); MONO % 6.6 % (1.7-9.3); PLATELET COUNT 324 K/mm3 (130-400); RED BLOOD COUNT 4.04 M/mm3 (4.10-5.30); REDCELL DISTRIBUTION WIDTH-CV 16.5 % (11.5-14.5)
[2022-10-19 11:50] LABS: HEMATOCRIT 34.5 % (37.0-47.0); HEMOGLOBIN 10.8 g/dl (12.5-16.0); MEAN CORPUSCULAR HEMOGLOBIN 27 pg (27-31)
[2022-10-19 12:03] LABS: ALBUMIN 3.4 gm/dL (3.4-4.8); CREATININE, serum 1.28 mg/dL (0.57-1.11); POTASSIUM 4.1 mmol/L (3.5-4.5); TOTAL PROTEIN 5.9 gm/dL (6.2-8.1)
[2022-10-19 12:19] LABS: TRICYCLIC ANTIDEPRESS URINE NEGATIVE
[2022-10-19 13:00] VITALS: PULSE 60
[2022-10-19 13:19] VITALS: BP 118/67
--- NOTE | 2022-10-19 13:24 | NUR ---
Patient presents to ED from [facility] for low blood pressure. This JONATHON and JONATHON Osullivan contact Marii at APS who states that the patients previous case was screened out. Phone call received from PCP JONATHON Rashid and discussed case. UDS tox. screen requested. This SW made new APS report today:([id number]) Patient to return back to the [facility].
== END 2022-10-19 13:00 | disposition home or self-care (01) ==
LOC: COL.ER 10:53
PROVIDERS: Personal Emergency Response Attendant
DX: R00.1 Bradycardia, unspecified (principal); D64.9 Anemia, unspecified; I12.9 Hypertensive chronic kidney disease with stage 1 through stage 4 chronic kidney disease, or unspecified chronic kidney disease; E11.22 Type 2 diabetes mellitus with diabetic chronic kidney disease; N18.9 Chronic kidney disease, unspecified; F17.200 Nicotine dependence, unspecified, uncomplicated; Z79.899 Other long term (current) drug therapy